=== PATIENT | male | born 1950 ===

== ENCOUNTER 2017-09-16 07:07 | Day surgery (SDC) | payer MEDICARE, OTHER ==
[2017-09-16] VITALS (8 sets, daily range): BP systolic 116–135; BP diastolic 60–79
[~2017-09-16] VITALS: Ht 175.3 cm; Wt 77.1 kg
--- NOTE | 2017-09-16 07:02 | Anethesia Preoperative Eval ---
Anesthesia Pre-op PMH/ROS General Date of Evaluation: Sep 16, 2017 Time of Evaluation: 07:02 Anesthesiologist: rosanna ASA Score: ASA 3 Mallampati Score Class I : Soft palate, uvula, fauces, pillars visible Class II: Soft palate, uvula, fauces visible Class III: Soft palate, base of uvula visible Class IV: Only hard plate visible Mallampati Classification: Class II Surgeon: darci Diagnosis: gerd Surgical Procedure: egd/colonoscopy Anesthesia History: none Social History: smoking - nonsmoker Family History: no anesthesia problems Allergies: Coded Allergies: No Known Allergies (Unverified , 09/15/17) Medications: see eMAR Past Medical History Gastrointestinal/Genitourinary: Reports: other - liver cancer, liver transplant Endocrine: Reports: DM Anesthesia Pre-op Phys. Exam Physician Exam Constitutional: NAD Neurologic: CN 2-12 intact Cardiovascular: RRR Respiratory: CTA Gastrointestinal: S/NT/ND Airway Exam Mallampati Score: Class II MO: full Neck: supple TMD: 2fb ROM: full Anesthesia Pre-op A/P Risk Assessment & Plan Assessment: asa3 Plan: mac Status Change Before Surgery: No Pre-Antibiotics Drug: JUDY Winkler Sep 16, 2017 07:02
[~2017-09-16 07:07] MED LIST: LR 1000ml 1,000 ML IVLG SCH
[2017-09-16] MEDS ORDERED: Midazolam 2mg/2ml Inj IVP PRN (07:15)
[2017-09-16] MEDS ORDERED: Atropine Inj 1mg/10ml Syr IV PRN (07:15)
[2017-09-16] MEDS ORDERED: fentaNYL 100 mcg/2 mL IV PRN (07:15)
[2017-09-16] MEDS ORDERED: DiphenhydrAMINE 50mg/ml Inj IVP PRN (07:15)
[2017-09-16] MEDS ORDERED: PROGRAF0.5 MG PO (08:26)
[2017-09-16] MEDS ORDERED: PROGRAF1 MG ORAL (08:28)
[2017-09-16] MEDS ORDERED: ZOLPIDEM TARTRA10 MG ORAL (08:28)
[2017-09-16] MEDS ORDERED: ATORVASTATIN CA20 MG ORAL (08:29)
[2017-09-16] MEDS ORDERED: Lidocaine 1% MPF 10mg/ml 5ml ONE (08:30)
[2017-09-16] MEDS ORDERED: fentaNYL 100 mcg/2 mL IV ONE (08:30)
[2017-09-16] MEDS ORDERED: LR 1000ml ONE (08:30)
[2017-09-16] MEDS ORDERED: Propofol 200mg/20ml IV ONE (08:30)
[2017-09-16] MEDS ORDERED: GABAPENTIN300 MG ORAL (08:31)
[2017-09-16] MEDS ORDERED: LANTUS SOL100 UNIT/1 SUBQ (08:32)
--- NOTE | 2017-09-16 08:32 | Short Stay Surgery H&P ---
History of Present Illness History of Present Illness Chief Complaint History of colitis and GERDs HPI Sean García is a 66 year old male who was admitted on for Abdominal Pain,Gerd /colitis Patient History Allergies: Coded Allergies: No Known Allergies (Unverified , 09/15/17) PAST MEDICAL HISTORY: (1) Diabetes (2) Hepatitis (3) Hyperlipidemia (4) Arthritis Past Surgeries: (1) Liver transplant planned Social History: Medication History Scheduled Tacrolimus (Prograf), 0.5 MG PO QHS, (Reported) Tacrolimus (Prograf), 1 MG ORAL DAILY, (Reported) Review of Systems Cardiovascular: Reports: no symptoms Respiratory: Reports: no symptoms Skeletal: Reports: other Gastrointestinal: Reports: gastro esophageal reflux disease Genitourinary: Reports: no symptoms Neurologic: Reports: no symptoms Endocrine: Reports: diabetes - type 2 Hematologic: Reports: no symptoms Physical Exam Vital Signs Last Vital Signs Date Time Temp Pulse Resp B/P (MAP) Pulse Ox O2 Delivery O2 Flow Rate FiO2 09/16/17 08:03 97.1 74 18 130/76 97 Room Air 97.1 Skin: normal HENT: normal Heart: normal Lungs: normal Abdomen: normal Extremities: normal Genitourinary: normal Plan Plan of Care Uper and lower GI endoscopies Preop Interventions None Summary of Findings See the reports Final Diagnosis: Attestation Are the patient's medical conditions optimized for surgery? Attestation Response: yes HAYDER PERDUE Sep 16, 2017 08:32
[2017-09-16] MEDS ORDERED: VICTOZA 2-0.6 MG/0.1 SUBQ (08:33)
--- NOTE | 2017-09-16 08:33 | Pre-Procedure Note/Attestation ---
Pre-Procedure Note/Attestation Complete Prior to Procedure Planned Procedure: left Procedure Narrative: Endoscopic examination of the uppr and lower GI tract with taking biopsies Indications for Procedure Pre-Operative Diagnosis: R/O colitis/hemorrhoids and gastritis Attestation I attest that I discussed the nature of the procedure; its benefits; risks and complications; and alternatives (and the risks and benefits of such alternatives ), prior to the procedure, with the patient (or the patient's legal direct customer service representative). I attest that, if there was a reasonable possibility of needing a blood transfusion, the patient (or the patient's legal direct customer service representative) was given the [facility] standardized written summary, pursuant to the Isaiah Mindy Blood Safety Act ([place] Health and Safety Code # 1645, as amended). I attest that I re-evaluated the patient just prior to the surgery and that there has been no change in the patient's H&P, except as documented below: IRONSAID Sep 16, 2017 08:33
[2017-09-16] MEDS ORDERED: NOVOLOG100 UNITS1 SUBQ ×3 (08:35→08:42)
--- NOTE | 2017-09-16 08:58 | Endoscopy Procedure Note ---
Endoscopy Procedure Note General Indication for Procedure: Abdominal pain/GERDs/screening colon with history of colitis Procedures Performed: EGD - Completely normal Upper GI endoscopy/biopsy done per random from gastric body., colonoscopy - Highly redundant colon with minimal internal hemorrhoids. Poor colon prep. Specimen: yes Pt Tolerated Procedure Well: Yes Estimated Blood Loss: none Anesthesia Anesthesiologist: Dr. Ricardo Anesthesia: moderate sedation Medications Medication Given: see anesthesia record Inserted Devices Implant(s) used?: No Quality Quality of Bowel Preparation: Poor Did scope reach the cecum?: Yes Was there any complications?: No GI Core Measures 50 yrs or older w/o bx or poly: Yes 10yrs. F/U not recommended: Yes 10 yrs. F/U needed: Yes 18 years or older w/prev. colo: No <3yrs. since last colonoscopy: No Med reason:<3 yrs.: System Reason:<3 yrs.: HAYDER PERDUE Sep 16, 2017 08:58
--- NOTE | 2017-09-16 08:59 | Discharge Instructions ---
Discharge Instructions Discharge Instructions Follow up with: See tte doctor after 2 weeks in the office For Congestive Heart Failure Reminder Report to your physician any weight gain of 5 pounds or more in one week. HAYDER PERDUE Sep 16, 2017 08:58
--- NOTE | 2017-09-16 09:23 | Immediate Post-Op Evaluation ---
Immediate Post-Op Evalulation Immediate Post-Op Evalulation Procedure: egd/colonoscopy Date of Evaluation: Sep 16, 2017 Time of Evaluation: 09:18 Blood Products: none Estimated Blood Loss: negligible Blood Pressure Systolic: 135 Blood Pressure Diastolic: 79 Pulse Rate: 89 Respiratory Rate: 18 O2 Sat by Pulse Oximetry: 100 Temperature (Fahrenheit): 98.0 Pain Score (1-10): 0 Nausea: No Vomiting: No Complications none Patient Status: awake, reacts, patent Hydration Status: adequate Drug: JUDY Winkler Sep 16, 2017 09:23
--- NOTE | 2017-09-16 09:24 | 48 Hour Post Anesthesia Eval ---
Post Anesthesia Evaluation Procedure: egd/colonoscopy Date of Evaluation: Sep 16, 2017 Time of Evaluation: 09:20 Blood Pressure Systolic: 116 0: 66 Pulse Rate: 84 Respiratory Rate: 18 Temperature (Fahrenheit): 98.0 O2 Sat by Pulse Oximetry: 100 Airway: patent Nausea: No Vomiting: No Pain Intensity: 0 Hydration Status: adequate Cardiopulmonary Status: stable Mental Status/LOC: patient returned to baseline Post-Anesthesia Complications: none Follow-up care needed: N/A JUDY DANIELLE Sep 16, 2017 09:24
--- NOTE | 2017-09-16 16:15 | Procedure Note ---
DATE OF PROCEDURE: 09/16/2017 SURGEON: Violeta Cornell M.D. PROCEDURE: Esophagogastroduodenoscopy with biopsy. PREOPERATIVE DIAGNOSES: 1. Abdominal pain. 2. History of gastroesophageal reflux. POSTOPERATIVE DIAGNOSIS: Completely normal upper GI endoscopy. Biopsy was taken per random from gastric body. MEDICATION USED: Per Dr. Ricardo, anesthesiologist. INSTRUMENT: GIF Olympus upper GI video endoscope. DESCRIPTION OF PROCEDURE: The patient, after arriving endoscopy unit, was told about risks and benefits of the procedure, which he accepted and signed informed consent. At this time, he was put in the left lateral decubitus position. After adequate IV sedation, the scope was gently passed through the cricopharyngeal area, was lodged into the upper esophagus, and gradually advanced towards gastroesophageal junction. The entire length of the esophagus looked normal. There was no any evidence of inflammatory process, ulceration, varices, stricture, etc. GE junction also looked normal. No Kirby's or hiatal hernia noted. At this time, the scope was advanced into the stomach. Gastric cavity was distended with insufflation of air revealing normal gastric mucosa in the areas of the fundus and the body and the antrum, and the retroflexion maneuver, which was also applied. The GE junction was examined in a closer fashion, which revealed no abnormality. At this time, one random biopsy from gastric body obtained and subsequently, the scope was passed through normal-looking pylorus. First and second portions of duodenum were found to be completely normal. At this time, the scope was pulled out and the procedure was terminated. The patient tolerated the procedure well. Violeta Cornell M.D. DR: NINOSKA JOB#: [id number] CC:
--- NOTE | 2017-09-16 16:15 | Operative Note - Dictated ---
DATE OF OPERATION: 09/16/2017 SURGEON: Violeta Cornell M.D. PROCEDURE PERFORMED: Total colonoscopy. PREOPERATIVE DIAGNOSES: 1. History of colitis. 2. Abdominal pain. POSTOPERATIVE DIAGNOSES: 1. Poor colonic preparation with high redundancy of the left colon. 2. Minimal internal hemorrhoids. MEDICATION USED: By anesthesiologist, Dr. Ricardo. INSTRUMENT: GIF Olympus videocolonoscope. DESCRIPTION OF PROCEDURE: The patient, after arriving endoscopy unit, was told about risks and benefits of the procedure, which he accepted and signed informed consent. At this point, he was put on the left lateral decubitus position. After adequate IV sedation, the scope was gently passed through the anal area and a retroflexion maneuver, which was applied in this section revealed evidence of minimal internal hemorrhoids, which were not friable and nonsignificant. The rest of the rectum looked normal. At this time, the scope was passed through highly redundant left colon, which took significant amount of time to pass through it plus the fact that the colon cleanup was not adequate and was poor. Evidence of soft, formed stools along the colon making the examination difficult. Finally, the scope reached to the splenic flexure. From there, it was guided into the transverse colon, hepatic flexure, and all the way to the cecum. All these areas remained to be normal and there were no any polyps, tumors, inflammatory process, stricture, ulcers, etc. Upon reaching to the base of the cecum, within 7 minutes, the scope was gradually pulled out and re-evaluation of the colon did not reveal any abnormality. At this time, the scope was pulled out. The procedure was terminated. The patient tolerated the procedure well and left the endoscopy room in a good condition. Violeta oCrnell M.D. DR: NINOSKA JOB#: [id number] CC:
== END 2017-09-16 10:30 | disposition home or self-care (01) ==
LOC: GAS 07:07
DX: K21.9 Gastro-esophageal reflux disease without esophagitis (principal); R10.9 Unspecified abdominal pain; K64.8 Other hemorrhoids; E11.9 Type 2 diabetes mellitus without complications; E78.5 Hyperlipidemia, unspecified; M19.90 Unspecified osteoarthritis, unspecified site; C22.8 Malignant neoplasm of liver, primary, unspecified as to type; K29.50 Unspecified chronic gastritis without bleeding
CPT/HCPCS: 43239; 45378; 82962; J0360; J2704; J3010; J7120; 94003; 94150